=== PATIENT | female | born 1945 | race Caucasian/White ===

== ENCOUNTER 2020-04-18 16:22 | Emergency (ER) | payer MEDICARE ==
[2020-04-18] MEDS ORDERED: Morphine 4 MG/ML VIAL ONE (16:37)
[2020-04-18] MEDS ORDERED: Acetaminophen 500 MG TAB ONE (16:38)
[2020-04-18] MEDS ORDERED: Lidocaine 1% w/Epinephrine 1:100K 20 ML VIAL ONE ×3 (16:38→17:40)
[2020-04-18] MEDS ORDERED: Ondansetron ODT 4 MG TAB ONE (16:38)
[2020-04-18] MEDS ORDERED: Adacel (T-DAP) 0.5 ML SYRINGE ONE (16:38)
--- NOTE | 2020-04-18 16:59 | CT ---
CT BRAIN WITHOUT CONTRAST: 04/18/20 HISTORY: Head injury, headache. FINDINGS: There are no previous exams for comparison. No evidence of acute infarct, hemorrhage, midline shift o r abnormal extra-axial fluid collections are seen. The ventricular size is appropriate and the basila r cisterns patent. The bony calvarium is intact. The visualized paranasal sinuses and mastoid air ce lls are well aerated. IMPRESSION: No CT evidence of acute intracranial process. POS: [facility]
== END 2020-04-18 18:55 | disposition home or self-care (01) ==
LOC: ERS 16:22
DX: S01.81XA Laceration without foreign body of other part of head, initial encounter (principal); Z23 Encounter for immunization; K21.9 Gastro-esophageal reflux disease without esophagitis; W22.8XXA Striking against or struck by other objects, initial encounter
CPT/HCPCS: 12034; 70450; 90471; 90715; 96372; J2270; Q0162